=== PATIENT | male | born 1955 | race Caucasian/White ===

== ENCOUNTER 2016-04-27 12:44 | Emergency (ER) | payer BC, OTHER ==
[~2016-04-27] VITALS: Ht 190.5 cm; Wt 113.0 kg
[~2016-04-27 12:44] MED LIST: ASPI81TA21 PO; ATOR20TA PO; CINN500C7 PO; CITRTAB7 PO; GABA100C4 PO; GLIP5 PO; JANU50TA9 PO; LITHIUM PO; LOSA50TA PO; OMEG12002 PO; PERC5TAB12 PO; TAB-TAB PO
[2016-04-27 12:46] VITALS: BP 135/92; PULSE 80; RESP 16; TEMP 97.6; O2SAT 99
[2016-04-27] MEDS ORDERED: TETANUS/DIPHTHERIA TOXOID ADULT 0.5 ML VIAL IM ONE (13:15)
--- NOTE | 2016-04-27 13:16 | PD ---
HPI Chief Complaint: Laceration/Skin Injury Time Seen by Provider: 13:12 Travel History International Travel<30 days: No Contact w/Intl Traveler<30days: No Traveled to known affect area: No History of Present Illness HPI 60-year-old male presents to the emergency room for evaluation of laceration to the left, distal, volar second digit that occurred just prior to arrival. Patient cut himself on an open tin can. He rinsed it with water and then came to the emergency room. He believes his last tetanus was greater than 5 years ago. Denies distal paresthesias. History of diabetes. Patient takes baby aspirin daily. PFSH Past Medical History Hx Anticoagulant Therapy: Yes (81 mg asa) Cardiovascular Problems: Yes (htn) High Cholesterol: Yes Diabetes: Yes (type 2 ) Diverticulitis: Yes Hypertension: Yes Social History Alcohol Use: No Tobacco Use: No Substance Use: No Allergies-Medications (Allergen,Severity, Reaction): Coded Allergies: No Known Allergies (Verified , 04/27/16) Reported Meds & Prescriptions Reported Meds & Active Scripts Active Reported Trulicity Inj (Dulaglutide Inj) 1.5 Mg/0.5 Ml Pen 1.5 Mg SQ Q7D Lipitor (Atorvastatin Calcium) 20 Mg Tab 20 Mg PO HS Losartan (Losartan Potassium) 50 Mg Tab 50 Mg PO DAILY Janumet Xr (Sitagliptin-Metformin ER) 50-1,000 Mg Tab 1 Tab PO DAILY Aspirin 81 Mg Chew 81 Mg CHEW DAILY Review of Systems Except as stated in HPI: all other systems reviewed are Neg Physical Exam Narrative GENERAL: Well-nourished, well-developed male in no acute distress. Afebrile. Ambulatory. SKIN: Warm and dry. There is a 1 cm well approximated, superficial laceration to the left distal, volar, second finger. Less than 2 second capillary refill distally. Full range of motion of the finger. HEAD: Normocephalic. EYES: No scleral icterus. No injection or drainage. NECK: Supple, trachea midline. No JVD or lymphadenopathy. Data Data Last Documented VS Vital Signs Date Time Temp Pulse Resp B/P Pulse Ox O2 Delivery O2 Flow Rate FiO2 04/27/16 12:46 97.6 80 16 135/92 99 Orders Tetanus/Diphtheria Tox Adult (Tetanus/Di (04/27/16 13:15) MDM Medical Decision Making Medical Screen Exam Complete: Yes Emergency Medical Condition: Yes Medical Record Reviewed: Yes Differential Diagnosis Laceration versus abrasion versus wound versus infection Narrative Course 60-year-old male presents to the emergency room for evaluation of laceration to the left volar, distal second finger. He cut it on a tin can just prior to arrival. Physical exam reveals a well approximated, superficial laceration. Less than 2 second capillary refill distally and full range of motion. No significant tenderness to palpation. Patient updated on tetanus. Wound was repaired with glue and Steri-Strips. Discharged with wound care instructions and told to follow up with a primary care physician or return to the emergency room for worsening symptoms. He understands and agrees to plan. Diagnosis Primary Impression: Laceration of left index finger Referrals: Primary Care Physician Patient Instructions: Finger Laceration (ED), General Instructions Additional Instructions: Rest and drink plenty of fluids. Keep wound clean and dry. Do not pick at glue or Steri-Strip, it will fall off on its own. Apply triple antibiotic ointment when it falls off. Follow-up with a primary care physician. Return to the emergency room for worsening symptoms. Disposition: 01 DISCHARGE HOME Condition: Stable Daja Maria Apr 27, 2016 13:16 Follow-up with a primary care physician. Return to the emergency room for worsening symptoms. Disposition: 01 DISCHARGE HOME Condition: Stable Daja Maria Apr 27, 2016 13:16
[2016-04-27] MEDS ORDERED: ASPI81CH CHEW (13:21)
[2016-04-27] MEDS ORDERED: DULA0.5I SQ (13:21)
[2016-04-27] MEDS ORDERED: LOSA50TA PO (13:21)
[2016-04-27] MEDS ORDERED: SITA50TA4 PO (13:21)
[2016-04-27] MEDS ORDERED: LIPI20TA PO (13:21)
== END 2016-04-27 13:54 | disposition home or self-care (01) ==
LOC: PHEFT 12:44
DX: S61.211A Laceration without foreign body of left index finger without damage to nail, initial encounter (principal); W26.8XXA Contact with other sharp object(s), not elsewhere classified, initial encounter; Z23 Encounter for immunization
CPT/HCPCS: 12001; 90471; 90714